=== PATIENT | male | born 1935 | race Caucasian/White ===

== ENCOUNTER 2021-09-14 15:12 | Observation (INO) | payer MEDICARE ==
[2021-09-14 16:38] LABS: #Eosinphils 0.4 10x3/uL (0.0-0.5); #Monocytes 0.6 10x3/uL (0.0-1.1); #Neutrophils 6.1 10x3/uL (1.5-8.4); %Basophils 0.3 % (0.0-2.0); %Eosinophils 4.9 % (0.0-6.0); %Lymphocytes 9.6 % (18.0-47.0); %Monocytes 7.8 % (0.0-10.0); Mean Corpuscular HGB CONC 34.3 g/dL (32.0-36.0); Mean Corpuscular Volume 90.4 fl (81.2-95.1); Mean Platelet Volume 8.8 fl (7.4-10.4); Platelet Count 260 10x3/uL (150-450); RBC Distribution Width 13.1 % (11.5-14.5); Red Blood Cell (RBC) Count 3.87 10x6/uL (4.32-5.72); White Blood Cell (WBC) Count 7.9 10x3/uL (3.5-10.5)
[2021-09-14] MEDS ORDERED: diphenhydrAMINE 50 MG/ML VIAL ONE (16:39)
[2021-09-14] MEDS ORDERED: methylPREDNISolone Sod Succ/PF 125 MG/2 ML VIAL ONE (16:39)
[2021-09-14] MEDS ORDERED: Famotidine/PF 20 mg/2ml Vial ONE (16:40)
[2021-09-14 16:53] LABS: ALT (SGPT) 16 U/L (8-55); AST (SGOT) 21 U/L (5-34); Albumin 3.2 g/dL (3.4-4.8); Alkaline Phosphatase 65 U/L (40-110); Anion Gap 15 mmol/L (10-20); BUN (Urea Nitrogen) 22 mg/dL (8.4-25.7); Bilirubin, Total 0.9 mg/dL (0.2-1.2); Calc. Creatinine Clearance 0 mL/min (70-130); Calcium 8.4 mg/dL (7.8-10.44); Carbon Dioxide 24 mmol/L (23-31); Chloride 101 mmol/L (98-107); Globulin 1.9 g/dL (2.4-3.5); Glucose 109 mg/dL (83-110); Potassium 3.6 mmol/L (3.5-5.1); Protein, Total 5.1 g/dL (5.8-8.1); Sodium 136 mmol/L (136-145)
[2021-09-14 17:17] LABS: CKMB 5.2 ng/mL (0-6.6)
[2021-09-14] MEDS ORDERED: hydrOXYzine 25 MG TAB ONE (17:53)
[2021-09-14 20:20] LABS: SARS-CoV-2 NAA Rapid Test Not Detected (NotDetected)
[2021-09-15 00:15] VITALS: BMI 23.6
[2021-09-15] MEDS ORDERED: Acetaminophen 325 MG TAB PO PRN (00:57)
[2021-09-15] MEDS ORDERED: hydrOXYzine Pamoate 25 mg Capsule PO SCH (01:00)
[2021-09-15] MEDS ORDERED: Menthol/Camphor Lotion 222 ml Bottle TOP PRN (01:00)
[2021-09-15 02:07] LABS: Magnesium 2.1 mg/dL (1.6-2.6)
[2021-09-15 04:07] LABS: Troponin I 0.018 ng/mL (< 0.028)
[2021-09-15 05:46] LABS: Troponin I 0.022 ng/mL (< 0.028)
[2021-09-15] MEDS: Enoxaparin Sodium 40 MG/0.4 ML SYRINGE SC SCH (10:32)
[2021-09-15] MEDS: Famotidine 20 MG TAB PO SCH (10:32)
[2021-09-15] MEDS ORDERED: Furosemide 40 MG/4 ML VIAL SLOW IVP SCH ×2 (15:00→21:00)
[2021-09-15] MEDS ORDERED: Potassium Chloride 20 MEQ TAB PO SCH (15:00)
[2021-09-15] MEDS ORDERED: diphenhydrAMINE 50 MG/ML VIAL IVP PRN (15:47)
[2021-09-16] MEDS ORDERED: Furosemide 40 MG/4 ML VIAL SLOW IVP SCH (08:45)
[2021-09-16] MEDS: Enoxaparin Sodium 40 MG/0.4 ML SYRINGE SC SCH (09:41)
[2021-09-16] MEDS: Famotidine 20 MG TAB PO SCH (09:42)
[2021-09-16 10:06] VITALS: BP 99/53; TEMP 98.3
== END 2021-09-16 12:06 | disposition home or self-care (01) ==
LOC: CSHERS 15:12 → UNDOADMOB 22:14 → CSHTELE 22:14 → INTOOBSV 22:14 → CSHTELE 09-15 00:57
PROVIDERS: ADMIT Family Medicine; ATTEND Family Medicine
DX: R21 Rash and other nonspecific skin eruption (principal); R60.9 Edema, unspecified; I25.10 Atherosclerotic heart disease of native coronary artery without angina pectoris; K21.9 Gastro-esophageal reflux disease without esophagitis; Z95.1 Presence of aortocoronary bypass graft; R77.8 Other specified abnormalities of plasma proteins; Z85.820 Personal history of malignant melanoma of skin; Z85.46 Personal history of malignant neoplasm of prostate; Z79.899 Other long term (current) drug therapy; Z79.82 Long term (current) use of aspirin; Z95.5 Presence of coronary angioplasty implant and graft; Z87.891 Personal history of nicotine dependence; Z20.822 Contact with and (suspected) exposure to COVID-19
CPT/HCPCS: 71045; 80053; 82553; 83735; 83880; 84484 ×3; 85025; 93005 ×2; 93306; 93970; 96372 ×2; 96375; 96376 ×2; G0378 ×3; U0002; 93010; 96374; J1200; J1650; J1940; J2930; Q0177; S0028